=== PATIENT | female | born 1965 ===

== ENCOUNTER 2021-03-01 04:59 | Emergency (ER) | payer MEDICAID ==
[~2021-03-01] VITALS: Ht 157.5 cm; Wt 54.5 kg
[2021-03-01 05:13] VITALS: BP 123/69
== END 2021-03-01 06:33 | disposition home or self-care (01) ==
LOC: ER 05:00
DX: R21 Rash and other nonspecific skin eruption (principal); L29.9 Pruritus, unspecified; Z00.00 Encounter for general adult medical examination without abnormal findings
CPT/HCPCS: 99281